=== PATIENT | male | born 1985 | race Caucasian/White ===

== ENCOUNTER 2018-05-19 15:29 | Emergency (ER) | payer BC ==
[2018-05-19] MEDS: LIDOCAINE 1% (MDV) 10 ML INJ INJ (16:37)
[2018-05-19] MEDS: CEFTRIAXONE 1 GM INJ IM (16:37)
== END 2018-05-19 17:39 | disposition home or self-care (01) ==
LOC: FTE 15:29
DX: L03.114 Cellulitis of left upper limb (principal); F17.210 Nicotine dependence, cigarettes, uncomplicated
CPT/HCPCS: 10060; 96372; 99284-25